=== PATIENT | female | born 1975 | race African-American/Black ===

== ENCOUNTER 2018-06-18 17:26 | Emergency (ER) | payer SELFPAY ==
[~2018-06-18] VITALS: Ht 144.8 cm; Wt 85.7 kg
[2018-06-18 17:40] VITALS: BP 146/84
[2018-06-18] MEDS ORDERED: AMLODIPINE BESY10 MG ORAL (17:51)
[2018-06-18] MEDS ORDERED: GABAPENTIN300 MG ORAL (17:51)
[2018-06-18] MEDS ORDERED: Ketorolac 60mg Inj IM ONE (18:15)
[2018-06-18] MEDS ORDERED: NAPROXEN500 M2 ORAL (18:17)
[2018-06-18] MEDS ORDERED: NITROFURANTOIN100 M2 ORAL (18:17)
--- NOTE | 2018-06-18 18:18 | Emergency Room Report ---
History of Present Illness General Chief Complaint: Pain Source: Patient Present Illness HPI 42-year-old female with history of sciatica currently on steroid injection and gabapentin complaining of worsening of sciatica times 2 days. Rating pain 10 out of 10, with radiation, has been taking gabapentin only minimal improvement. Patient also complains of dysuria. He is denying hematuria. Denies urinary/ bowel incontinence. denies nausea vomiting/discharged flank pain Allergies: Coded Allergies: No Known Allergies (Unverified , 06/18/18) Patient History Past Medical History: see triage record Past Surgical History: none Now: No Immunizations: UTD Reviewed Nursing Documentation: PMH: Agreed; PSxH: Agreed Nursing Documentation-PMH Past Medical History: No History, Except For Hx Hypertension: Yes Review of Systems All Other Systems: negative except mentioned in HPI Physical Exam Vital Signs Date Time Temp Pulse Resp B/P (MAP) Pulse Ox O2 Delivery O2 Flow Rate FiO2 06/18/18 17:45 98.4 83 17 131/76 98 Room Air Sp02 EP Interpretation: reviewed, normal General Appearance: normal inspection, well appearing Head: normocephalic Eyes: bilateral eye normal inspection, bilateral eye PERRL ENT: normal ENT inspection Neck: normal inspection, supple Respiratory: normal inspection, chest non-tender, no rhonchi, no wheezing Cardiovascular #1: normal inspection, no edema, no murmur Gastrointestinal: normal inspection, soft Rectal: deferred Genitourinary: no CVA tenderness Musculoskeletal: back normal, other - reduced ROM on left hip Neurologic: normal inspection, alert Psychiatric: normal inspection, judgement/insight normal Skin: normal inspection, normal color, no rash, warm/dry Lymphatic: normal inspection, no adenopathy Medical Decision Making PA Attestation of diagnosis and treatment plans are reviewed and discussed with my supervising physician doctorcompa Diagnostic Impression: Primary Impression: Sciatica Additional Impression: UTI (urinary tract infection) ER Course 42-year-old female with history of sciatica currently on steroid injection and gabapentin complaining of worsening of sciatica times 2 days. Rating pain 10 out of 10, with radiation, has been taking gabapentin only minimal improvement. Patient also complains of dysuria. He is denying hematuria. Denies urinary/ bowel incontinence. denies nausea vomiting/discharged flank pain Ddx considered but are not limited to sciatica, UTI, chronic back pain Vital signs: are WNL, pt. is afebrile H&PE are most consistent with sciatica, UTI ORDERS UA, urine pregnancytest, toradol 60, naproxen 500 ED INTERVENTIONS: toradol 60 DISCHARGE: At this time pt. is stable for d/c to home. Will provide printed patient care instructions, and any necessary prescriptions. Care plan and follow up instructions have been discussed with the patient prior to discharge. f/u with pcp and pain mgmt Lab Results Impression UA WNL, tx symptoms neg urine Last Vital Signs Date Time Temp Pulse Resp B/P (MAP) Pulse Ox O2 Delivery O2 Flow Rate FiO2 06/18/18 17:45 98.4 83 17 131/76 98 Room Air Disposition: HOME, SELF-CARE Condition: Stable Scripts Nitrofurantoin Monohyd/M-Cryst* (MACROBID 100 MG*) 100 Mg Capsule 100 MG ORAL EVERY 12 HOURS for 7 Days, #14 CAP Prov: Erica Westfall 06/18/18 Naproxen* (NAPROXEN*) 500 Mg Tablet 500 MG ORAL TWICE A DAY, #30 TAB Prov: Erica Westfall 06/18/18 Patient Instructions: Sciatica, [id number], Urinary Tract Infection, Easy-to- Read Additional Instructions: follow up with PCP regarding sciatica, management Erica Westfall Jun 18, 2018 18:18
[2018-06-18 18:39] LABS: APPEARANCE,URINE CLEAR; BILIRUBIN, URINE NEGATIVE (NEGATIVE); COLOR,URINE PALE YELLOW; GLUCOSE, URINE (UA) NEGATIVE (NEGATIVE); KETONES,URINE NEGATIVE (NEGATIVE); LEUKOCYTE ESTERASE ,URINE NEGATIVE (NEGATIVE); NITRITE,URINE NEGATIVE (NEGATIVE); PH,URINE 5 (4.5-8.0); PROTEIN,URINE NEGATIVE (NEGATIVE); UROBILINOGEN,URINE NORMAL MG/DL (0.0-1.0)
[2018-06-18 18:48] VITALS: BP 136/74
== END 2018-06-18 18:48 | disposition home or self-care (01) ==
LOC: EMR 18:06
DX: M54.30 Sciatica, unspecified side (principal); N39.0 Urinary tract infection, site not specified
CPT/HCPCS: 81001; 81025; 99283

== ENCOUNTER 2019-01-23 21:58 | Emergency (ER) | payer MEDICAID ==
[~2019-01-23] VITALS: Ht 144.8 cm; Wt 82.6 kg
[~2019-01-23 21:58] MED LIST: AMLODIPINE BESY10 MG ORAL; GABAPENTIN300 MG ORAL; NAPROXEN500 M2 ORAL; NITROFURANTOIN100 M2 ORAL
[2019-01-23] MEDS ORDERED: IBUPROFEN600 MG ORAL (22:05)
[2019-01-23] MEDS ORDERED: AMOXICILLI400 MG/5 M ORAL (22:05)
[2019-01-23 22:15] VITALS: BP 150/93
[2019-01-23] MEDS ORDERED: HYDROCORTISONE-30 GM TOPIC (22:34)
[2019-01-23] MEDS ORDERED: DOXYCYCLINE MO100 MG ORAL (22:34)
--- NOTE | 2019-01-23 22:34 | Emergency Room Report ---
History of Present Illness General Chief Complaint: Skin Rash/Abscess Source: Patient Present Illness HPI Is a 43-year-old female presents with a rash. His been ongoing for several days now. She said her brother's has fleas. She has been itching. Started on her lower extremity now tracking up. No fever chills but no nausea no vomiting. Fell anxious now. With headache and numbness. No drainage. No fever chills but no other complaint. Has not tried anything for it. Allergies: Coded Allergies: No Known Allergies (Unverified , 06/18/18) Patient History Past Medical History: see triage record, old chart reviewed Past Surgical History: none Pertinent Family History: none Social History: Denies: smoking Last Menstrual Period: 01/23/19 Now: No : 3 Para: 3 Immunizations: other Reviewed Nursing Documentation: PMH: Agreed; PSxH: Agreed Nursing Documentation-PMH Hx Hypertension: Yes Review of Systems Eye: Denies: eye pain, blurred vision ENT: Denies: ear pain, nose congestion, throat swelling Respiratory: Denies: cough, shortness of breath Cardiovascular: Denies: chest pain, palpitations Gastrointestinal: Denies: abdominal pain, diarrhea, nausea, vomiting Musculoskeletal: Denies: back pain, joint pain Skin: Reports: rash Neurological: Denies: headache, numbness Endocrine: Denies: increased thirst, increased urine Hematologic/Lymphatic: Denies: easy bruising All Other Systems: negative except mentioned in HPI Physical Exam Vital Signs Date Time Temp Pulse Resp B/P (MAP) Pulse Ox O2 Delivery O2 Flow Rate FiO2 01/23/19 22:00 98.2 82 18 150/93 (112) 99 Room Air vitals normal Sp02 EP Interpretation: reviewed, normal General Appearance: well appearing, no apparent distress, alert Head: normocephalic, atraumatic Eyes: bilateral eye PERRL, bilateral eye EOMI ENT: hearing grossly normal, normal pharynx Neck: full range of motion, supple, no meningismus Respiratory: chest non-tender, lungs clear, normal breath sounds Cardiovascular #1: regular rate, rhythm, no murmur Gastrointestinal: normal bowel sounds, non tender, no mass, no organomegaly, no bruit, non-distended Musculoskeletal: back normal, gait/station normal, normal range of motion Psychiatric: mood/affect normal Skin: warm/dry, other - Scattered 2-3 mm lesion on her lower extremities and upper extremities. Some irritation and redness from scratching. Medical Decision Making Diagnostic Impression: Primary Impression: Rash and other nonspecific skin eruption Additional Impression: Cellulitis Qualified Codes: L03.90 - Cellulitis, unspecified ER Course Patient presents with possible flea bites with secondary cellulitis. No abscess or necrotizing fasciitis. We'll discharge home. Last Vital Signs Date Time Temp Pulse Resp B/P (MAP) Pulse Ox O2 Delivery O2 Flow Rate FiO2 01/23/19 22:00 98.2 82 18 150/93 (112) 99 Room Air Status: improved Disposition: HOME, SELF-CARE Condition: Stable Scripts Hydrocortisone/Aloe Vera 1%* (HYDROCORTISONE-ALOE 1% CREAM*) Y Cr 1 APPLIC TOPIC Q6H PRN for Itching, #30 GM Prov: Camacho Lawler MD 01/23/19 Doxycycline Monohydrate* (DOXYCYCLINE MONOHYDRATE*) 100 Mg Capsule 100 MG ORAL Q12H, #14 CAP 0 Refills Prov: Camacho Lawler MD 01/23/19 Additional Instructions: Follow-up with your doctor in 7 days. Return if symptom worsen. Camacho Lawler MD Jan 23, 2019 22:34
--- NOTE | 2019-01-23 22:39 | NUR ---
ED Nurse Note: Patient walked in to ER c/o rash, itching. Per patient she thinks it might be insects bite. AAO x4, VSS a this time, skin is warm to touch.
[2019-01-23 22:41] VITALS: BP 150/93
--- NOTE | 2019-01-23 22:42 | NUR ---
ED Nurse Note: Pt cleared by health care Provider for discharge. DC instructions/prescription was given and explained to pt and verbalized understanding of teachings. All medical deviecs such as ID band removed. Pt is AAO x4, ambulatory and left with all personal belongings.
== END 2019-01-23 23:00 | disposition home or self-care (01) ==
LOC: EMR 22:17
DX: R21 Rash and other nonspecific skin eruption (principal); L03.90 Cellulitis, unspecified; I10 Essential (primary) hypertension
CPT/HCPCS: 99282